=== PATIENT | female | born 1950 | race African-American/Black ===

== ENCOUNTER 2017-06-09 06:21 | Emergency (ER) | payer MEDICARE ==
[2017-06-09] MEDS ORDERED: NITROGLYCERIN 0.4 MG SL TAB SL ONE (07:33)
[2017-06-09] MEDS ORDERED: ASPIRIN 325 MG TABLET ONE (07:33)
[2017-06-09 07:41] LABS: BASOPHILS % (AUTO) 0.9 % (0.0-5.0); EOSINOPHILS % (AUTO) 5.5 % (0.0-8.0); HEMATOCRIT 40.3 % (36-48); LYMPHOCYTES % (AUTO) 33.4 % (21.0-51.0); MEAN CORPUSCULAR HEMOGLOBIN 26.9 pg (27.0-33.0); MEAN CORPUSCULAR HGB CONC 32.2 g/dL (32.0-36.0); MEAN CORPUSCULAR VOLUME 83.6 fL (79-99); MONOCYTES % (AUTO) 8.2 % (3.0-13.0); PLATELET COUNT (AUTO) 217 K/uL (130-400); RED BLOOD CELL COUNT(AUTO) 4.82 MIL/uL (4.00-5.50); RED CELL DISTRIBUTION WIDTH 13.7 % (11.0-15.5); WHITE BLOOD COUNT (AUTO) 6.4 K/uL (4.8-10.8)
[2017-06-09] MEDS ORDERED: ORPHENADRINE CITRATE 30 MG/ML ML ONE (08:12)
[2017-06-09 08:24] LABS: CREATININE 0.8 mg/dL (0.5-1.5); POTASSIUM 3.5 mmol/L (3.5-5.1)
[2017-06-09 08:34] LABS: ALBUMIN 3.4 g/dL (3.5-5.0); BILIRUBIN,TOTAL 0.5 mg/dL (0.2-1.0); CREATINE KINASE MB 0.7 ng/mL (0.5-3.6); TOTAL PROTEIN, SERUM 7.2 g/dL (6.0-8.3)
[2017-06-09] MEDS ORDERED: KETOROLAC TROMETHAMINE 30MG/ML ONE (09:59)
== END 2017-06-09 11:09 | disposition home or self-care (01) ==
LOC: EDH 06:21
DX: M54.6 Pain in thoracic spine (principal); R07.9 Chest pain, unspecified; I10 Essential (primary) hypertension; J45.909 Unspecified asthma, uncomplicated; Z88.0 Allergy status to penicillin; Z88.2 Allergy status to sulfonamides; Z98.890 Other specified postprocedural states
CPT/HCPCS: 36415; 71045; 80053; 82550; 82553; 84484 ×2; 85025; 93005 ×2; 96374; 96375; 99285; J1885; J2360

== ENCOUNTER 2017-08-22 10:27 | Emergency (ER) | payer MEDICARE ==
[2017-08-22] MEDS ORDERED: IBUPROFEN 600 MG TABLET ONE (11:05)
== END 2017-08-22 12:11 | disposition home or self-care (01) ==
LOC: EDH 10:27
DX: S83.92XA Sprain of unspecified site of left knee, initial encounter (principal); S93.402A Sprain of unspecified ligament of left ankle, initial encounter; J45.909 Unspecified asthma, uncomplicated; I10 Essential (primary) hypertension; Z90.710 Acquired absence of both cervix and uterus; Z88.0 Allergy status to penicillin; Z88.2 Allergy status to sulfonamides; X50.1XXA Overexertion from prolonged static or awkward postures, initial encounter; Y93.01 Activity, walking, marching and hiking; Y92.098 Other place in other non-institutional residence as the place of occurrence of the external cause; Y99.8 Other external cause status
CPT/HCPCS: 73562; 73610

== ENCOUNTER 2019-07-18 23:24 | Emergency (ER) | payer MEDICARE ==
[2019-07-18] MEDS ORDERED: IPRATROPIUM/ALBUTEROL SULFATE 3 ML SOLUTION IH ONE (23:58)
[2019-07-19] MEDS ORDERED: METHYLPREDNISOLONE SOD SUCC 125MG/2ML VIAL ONE (00:04)
[2019-07-19] MEDS ORDERED: SODIUM CHLORIDE 0.9% 1000ML 1,000 ML IV ONE (00:04)
[2019-07-19] MEDS ORDERED: KETOROLAC TROMETHAMINE 15MG/ML ONE (00:04)
[2019-07-19] MEDS ORDERED: ONDANSETRON HCL 4 MG/2 ML VIAL ONE (00:04)
[2019-07-19 00:28] LABS: BASOPHILS % (AUTO) 0.7 % (0.0-5.0); EOSINOPHILS % (AUTO) 10.7 % (0.0-8.0); HEMATOCRIT 40.8 % (36-48); LYMPHOCYTES % (AUTO) 20.7 % (21.0-51.0); MEAN CORPUSCULAR HEMOGLOBIN 27.3 pg (27.0-33.0); MEAN CORPUSCULAR HGB CONC 31.9 g/dL (32.0-36.0); MEAN CORPUSCULAR VOLUME 85.5 fL (79-99); MONOCYTES % (AUTO) 6.3 % (3.0-13.0); NEUTROPHILS % (AUTO) 61.3 % (40.0-77.0); PLATELET COUNT (AUTO) 251 K/uL (130-400); RED BLOOD CELL COUNT(AUTO) 4.77 MIL/uL (4.00-5.50); RED CELL DISTRIBUTION WIDTH 12.7 % (11.0-15.5); WHITE BLOOD COUNT (AUTO) 12.3 K/uL (4.8-10.8)
[2019-07-19] MEDS ORDERED: IPRATROPIUM/ALBUTEROL SULFATE 3 ML SOLUTION IH ONE (00:35)
[2019-07-19 00:36] LABS: CREATININE 0.8 mg/dL (0.5-1.5); POTASSIUM 3.5 mmol/L (3.5-5.1)
[2019-07-19 00:41] LABS: ALBUMIN 3.7 g/dL (3.5-5.0); BILIRUBIN,TOTAL 0.3 mg/dL (0.2-1.0); TOTAL PROTEIN, SERUM 7.7 g/dL (6.0-8.3)
[2019-07-19] MEDS ORDERED: DiphenhydrAMINE HCL 50 MG/ML VIAL ONE (01:36)
[2019-07-19] MEDS ORDERED: FAMOTIDINE/PF 20 MG/2 ML VIAL IV ONE (01:36)
== END 2019-07-19 02:23 | disposition home or self-care (01) ==
LOC: EDH 23:24
DX: J45.901 Unspecified asthma with (acute) exacerbation (principal); I10 Essential (primary) hypertension; Z90.49 Acquired absence of other specified parts of digestive tract; Z90.710 Acquired absence of both cervix and uterus; Z88.0 Allergy status to penicillin; Z88.2 Allergy status to sulfonamides; Z79.899 Other long term (current) drug therapy
CPT/HCPCS: 36415; 71045; 80053; 82550; 84484; 85025; 93005; 94640 ×2; 96374; 96375; 99285; J1200; J1885; J2405; J2930; J3490; J7030

== ENCOUNTER → 2022-04-01 | Outpatient (CLI) | payer MEDICARE, OTHER ==
[~2022-04-01] MED LIST: GADOTERATE MEGLUMINE 10 MMOL/20 ML VIAL IV ONE
== END | disposition home or self-care (01) ==
LOC: RAH 09:11
PROVIDERS: ATTEND Family Medicine
DX: M48.061 Spinal stenosis, lumbar region without neurogenic claudication (principal); M54.50 Low back pain, unspecified; M54.31 Sciatica, right side; M54.32 Sciatica, left side
CPT/HCPCS: 72158; A9575

== ENCOUNTER 2022-06-21 15:00 | Observation (INO) | payer OTHER ==
[~2022-06-21] VITALS: Ht 165.1 cm; Wt 69.8 kg
[2022-06-21 11:40] LABS: BASOPHILS % (AUTO) 0.5 % (0.0-5.0); EOSINOPHILS % (AUTO) 4.2 % (0.0-8.0); HEMATOCRIT 44.8 % (36-48); LYMPHOCYTES % (AUTO) 27.6 % (21.0-51.0); MEAN CORPUSCULAR HEMOGLOBIN 27.3 pg (27.0-33.0); MEAN CORPUSCULAR VOLUME 87.8 fL (79-99); MONOCYTES % (AUTO) 7.8 % (3.0-13.0); NEUTROPHILS % (AUTO) 59.5 % (40.0-77.0); PLATELET COUNT (AUTO) 273 K/uL (130-400); RED CELL DISTRIBUTION WIDTH 13.2 % (11.0-15.5); WHITE BLOOD COUNT (AUTO) 9.1 K/uL (4.8-10.8)
[2022-06-21 11:53] LABS: CREATININE 0.7 mg/dL (0.5-1.5); POTASSIUM 3.6 mmol/L (3.5-5.1)
[2022-06-22 08:49] VITALS: BP 149/90
[2022-06-22] MEDS ORDERED: ROSU10TA28 PO (09:07)
[2022-06-22] MEDS ORDERED: UBID100C10 PO (09:33)
[2022-06-22] MEDS ORDERED: FLUTICASONE NASAL (09:33)
[2022-06-22] MEDS ORDERED: FOLI0.8T3 PO (09:33)
[2022-06-22] MEDS ORDERED: IBUP-2070 PO (09:33)
[2022-06-22] MEDS ORDERED: [UNRECOGNIZED DRUG - OTHER] PO (09:33)
[2022-06-22] MEDS ORDERED: AMLO-258 PO (09:33)
[2022-06-22] MEDS ORDERED: [UNRECOGNIZED DRUG - OTHER] PO (09:33)
[2022-06-22] MEDS ORDERED: BREO ELLIPTA IH (09:33)
[2022-06-22] MEDS ORDERED: MONT-39 PO (09:33)
[2022-06-23] VITALS (27 sets, daily range): BP systolic 84–136; BP diastolic 57–77
[2022-06-23] MEDS: CLINDAMYCIN IVPB 900MG/50ML 50 ML IV SCH (05:00)
[2022-06-23] MEDS ORDERED: THROMBIN-JMI 20000 UNIT KIT TP ONE ×2 (05:08→07:43)
[2022-06-23] MEDS ORDERED: VANCOMYCIN 1G VIAL ONE (05:10)
[2022-06-23] MEDS ORDERED: MORPHINE PF 100MG/10ML AMP IV ONE ×2 (05:11→07:46)
[2022-06-23] MEDS ORDERED: BUPIVACAINE/EPI/PF 0.25% 10ML VIAL IJ ONE ×4 (05:11→11:38)
[2022-06-23] MEDS ORDERED: GENTAMICIN SULFATE 80 MG/2 ML VIAL ONE ×2 (05:27→08:13)
[2022-06-23] MEDS ORDERED: LACTATED RINGERS 1000ML 1,000 ML IV ONE (06:11)
[2022-06-23] MEDS ORDERED: PROPOFOL 10 MG/ML 20ML VIAL IV ONE (06:52)
[2022-06-23] MEDS ORDERED: LIDOCAINE PF 100MG/5ML (2%) SYRINGE 5ML ONE (06:52)
[2022-06-23] MEDS ORDERED: NEOSTIGMINE 5MG/5ML SYR IV ONE (06:52)
[2022-06-23] MEDS ORDERED: DEXAMETHASONE SOD PHOSPHATE 10MG/ML 1ML VIAL ONE ×2 (06:52→07:46)
[2022-06-23] MEDS ORDERED: GLYCOPYRROLATE 1 MG/5 ML SYRINGE ONE (06:52)
[2022-06-23] MEDS ORDERED: SUCCINYLCHOLINE CHLORIDE 20 MG/ML 10 ML VIAL ONE (06:52)
[2022-06-23] MEDS ORDERED: MIDAZOLAM HCL 1 MG/ML 2ML VIAL ONE (06:52)
[2022-06-23] MEDS ORDERED: ONDANSETRON 4MG INJ ONE ×2 (06:53→07:46)
[2022-06-23] MEDS ORDERED: FENTANYL CITRATE PF 50 MCG/1 ML 2ML VIAL ONE ×4 (06:53→11:13)
[2022-06-23] MEDS ORDERED: ROCURONIUM 10MG/1ML SYR 10 MG/ML ML ONE (06:53)
[2022-06-23] MEDS ORDERED: BUPIVACAINE/EPI/PF 0.25% 10ML VIAL IJ SCH (09:30)
[2022-06-23] MEDS ORDERED: CLINDAMYCIN IVPB 900MG/50ML 50 ML IV SCH (12:00)
[2022-06-23] MEDS ORDERED: PROMETHAZINE HCL 25 MG/ML 1ML AMPULE IM PRN (12:00)
[2022-06-23] MEDS ORDERED: 0.9%NACL 10ML VIAL IVP PRN (12:00)
[2022-06-23] MEDS: LACTATED RINGERS 1000ML 1,000 ML IV SCH (12:00)
[2022-06-23] MEDS ORDERED: IBUPROFEN 200 MG TAB PO PRN (12:00)
[2022-06-23] MEDS ORDERED: HYDROMORPHONE 1 MG INJ ONE (12:41)
[2022-06-23] MEDS: FLUTICASONE PROPIONATE 50MCG/SPRAY 16 GM BOTTLE NS SCH (12:45)
[2022-06-23] MEDS: DEXAMETHASONE SOD PHOSPHATE 4 MG/ML 1ML VIAL IVP SCH ×2 (16:42→18:00)
[2022-06-23] MEDS ORDERED: FOLIC ACID 1 MG TABLET PO SCH (21:00)
[2022-06-23] MEDS ORDERED: MONTELUKAST SODIUM 10 MG TAB PO SCH (21:00)
[2022-06-23] MEDS: HYDROCODONE/ACETAMINOPHEN 5/325 MG TAB PO PRN (22:20)
[2022-06-24] MEDS: DEXAMETHASONE SOD PHOSPHATE 4 MG/ML 1ML VIAL IVP SCH ×2 (00:10→06:17)
[2022-06-24] MEDS: MORPHINE 2 MG SYG IVP PRN ×2 (00:10→09:46)
[2022-06-24 00:18] VITALS: BP 103/62
[2022-06-24] MEDS: LACTATED RINGERS 1000ML 1,000 ML IV SCH (00:27)
[2022-06-24] MEDS: CLINDAMYCIN IVPB 900MG/50ML 50 ML IV SCH (00:27)
[2022-06-24 04:22] VITALS: BP 109/57
[2022-06-24] MEDS: HYDROCODONE/ACETAMINOPHEN 5/325 MG TAB PO PRN (06:51)
[2022-06-24 07:05] VITALS: BP 87/62
[2022-06-24] MEDS: FLUTICASONE PROPIONATE 50MCG/SPRAY 16 GM BOTTLE NS SCH (08:37)
[2022-06-24] MEDS ORDERED: AMLODIPINE 5 MG TAB PO SCH (09:00)
[2022-06-24] MEDS ORDERED: ***HM***(Ubidecarenone (Coq-10) 100 MG) PO SCH (09:00)
[2022-06-24] MEDS ORDERED: ATORVASTATIN 10 MG TABLET PO SCH (09:00)
[2022-06-24] MEDS ORDERED: [UNRECOGNIZED DRUG - OTHER] PO SCH (09:00)
[2022-06-24] MEDS ORDERED: FLUTICASONE/VILANTEROL 1 EACH AER.POW.BA IH SCH (09:00)
[2022-06-24] MEDS ORDERED: MULTIVITS,STRESS FORMULA/ZINC 1 TABLET PO SCH (09:00)
== END 2022-06-24 12:11 | disposition home or self-care (01) ==
LOC: DAHIP 06-23 05:55 → 4AH 06-23 14:02 → EDSTATUS 06-23 15:00
PROVIDERS: ADMIT Neurological Surgery; ATTEND Neurological Surgery
DX: M48.061 Spinal stenosis, lumbar region without neurogenic claudication (principal); Z20.822 Contact with and (suspected) exposure to COVID-19; J45.909 Unspecified asthma, uncomplicated; I10 Essential (primary) hypertension; E78.5 Hyperlipidemia, unspecified; Z90.710 Acquired absence of both cervix and uterus; Z79.899 Other long term (current) drug therapy; Z88.0 Allergy status to penicillin
CPT/HCPCS: 80048; 85025; 87426; 36415; 71045; 22612; 63047; 63048 ×3; 22840; 96372; 96365; 96375 ×2; 72110; 96376; A6260; J1100 ×5; G0378 ×23; G0379; A4663; J7120 ×3; A4344; A4649 ×6; J3010 ×4; J1170; J3490 ×8; J2710; J0330; J2001; J1580 ×2; J2250; J2704; J2274 ×2; J2405 ×2; A5113; A6219; C1776; A4215; A4223; A4222; A4221; A4600; A4510; J3370

== ENCOUNTER → 2022-07-19 | Outpatient (CLI) | payer OTHER ==
[~2022-07-19] MED LIST changes: +AMLO-258 PO; +BREO ELLIPTA IH; +FLUTICASONE NASAL; +FOLI0.8T3 PO; -GADOTERATE MEGLUMINE 10 MMOL/20 ML VIAL IV ONE; +IBUP-2070 PO; +MONT-39 PO; +ROSU10TA28 PO; +UBID100C10 PO; +[UNRECOGNIZED DRUG - OTHER] PO; +[UNRECOGNIZED DRUG - OTHER] PO
== END | disposition home or self-care (01) ==
LOC: RAH 10:00
PROVIDERS: ATTEND Neurological Surgery
DX: M47.816 Spondylosis without myelopathy or radiculopathy, lumbar region (principal); M43.17 Spondylolisthesis, lumbosacral region; M48.07 Spinal stenosis, lumbosacral region; Z98.1 Arthrodesis status
CPT/HCPCS: 72100

== ENCOUNTER 2024-07-09 12:22 | Emergency (ER) | payer OTHER ==
[~2024-07-09] VITALS: Ht 165.1 cm; Wt 65.3 kg
[~2024-07-09 12:22] MED LIST changes: -ROSU10TA28 PO; +ROSU10TA72 PO
[2024-07-09 14:33] VITALS: BP 140/86; PULSE 95; RESP 20; TEMP 98; O2SAT 96
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
--- NOTE | 2024-07-09 16:04 | HMCIMG ---
LUMBAR SPINE 2-3VWS HISTORY: Back pain COMPARISON: None FINDINGS: 3 images of lumbar spine were obtained. Postop changes are seen with fixation devices at L4 and L5 level with laminectomy changes. Grade 1 anterolisthesis is seen at the L4-5 and L3-4 levels. Vascular calcifications are seen. There is straightening of normal lordotic curvature which may be related to muscle spasm or positioning. No loss of vertebral height is seen. No fracture or dislocation is seen. Degenerative changes are seen. IMPRESSION: 1. No fracture is seen. DJD with postop changes.
== END 2024-07-09 16:41 | disposition home or self-care (01) ==
LOC: EDH 12:22
DX: M54.50 Low back pain, unspecified (principal); I10 Essential (primary) hypertension; J45.909 Unspecified asthma, uncomplicated; Z79.51 Long term (current) use of inhaled steroids; Z88.0 Allergy status to penicillin; Z88.2 Allergy status to sulfonamides; Z90.710 Acquired absence of both cervix and uterus; V89.2XXA Person injured in unspecified motor-vehicle accident, traffic, initial encounter; Y93.89 Activity, other specified; Y92.488 Other paved roadways as the place of occurrence of the external cause; Y99.8 Other external cause status
CPT/HCPCS: 72100; 99283

== ENCOUNTER 2024-07-29 20:20 | Observation (INO) | payer OTHER ==
[~2024-07-29] VITALS: Ht 165.1 cm; Wt 64.7 kg
--- NOTE | 2024-07-29 20:29 | NUR ---
COVID, FLU AND STREP SWABS COLLECTED AND SENT
[2024-07-29 20:54] LABS: RAPID GROUP A STREP negative (NEGATIVE)
[2024-07-29 20:58] LABS: SARS-CoV-2, RNA, NAAT NEGATIVE SARS CoV-2 (NEGATIVE)
--- NOTE | 2024-07-29 21:16 | HMCIMG ---
ULTRASOUND ABDOMEN LIMITED INDICATION: Right upper abdominal pain COMPARISON: None FINDINGS: The liver is normal in size and slightly increased in echogenicity; no focal lesion demonstrated. Main portal vein is patent, and normal direction of vascular flow demonstrated. The common bile duct diameter measures 4.0 mm. No evidence for calculi, sludge or pericholecystic fluid. No sonographic Patel's sign elicited by the ultrasound larry operator. Wall thickness measures 3.0 mm. Pancreas is obscured by overlying bowel gas. The right kidney measures 8.7 x 3.6 x 4.0 cm,and is normal in echogenicity, without evidence for hydronephrosis.No shadowing stones demonstrated. No free fluid demonstrated. IMPRESSION: Limitations as reported. Findings suggesting mild hepatic steatosis.
[2024-07-29] MEDS: 0.9%NACL 1000ML 1,000 ML IV ONE ×2 (21:17→23:37)
[2024-07-29] MEDS: morPHINE 4 MG SYG IVP ONE (21:17)
[2024-07-29] MEDS: PANTOPrazole 40 MG/VIAL IVP ONE (21:17)
[2024-07-29] MEDS: ondanSETRON 4MG INJ IVP ONE (21:17)
[2024-07-29] MEDS: acetaMINOPHEN 500 MG TABLET PO ONE (21:18)
[2024-07-29 21:24] LABS: BASOPHILS # (AUTO) 0.02 K/uL (0.00-0.20); BASOPHILS % (AUTO) 0.3 % (0.0-5.0); EOSINOPHILS # (AUTO) 0.16 K/uL (0.00-0.70); EOSINOPHILS % (AUTO) 2.8 % (0.0-8.0); HEMATOCRIT 43.9 % (36-48); IMMATURE GRANULOCYTE ABSOLUTE 0.02 K/uL (0-1); LYMPHOCYTES # (AUTO) 1.1 K/uL (1.0-4.8); LYMPHOCYTES % (AUTO) 19.5 % (21.0-51.0); MEAN CORPUSCULAR HEMOGLOBIN 27.1 pg (27.0-33.0); MEAN CORPUSCULAR HGB CONC 31.7 g/dL (32.0-36.0); MEAN CORPUSCULAR VOLUME 85.7 fL (79-99); MONOCYTES # (AUTO) 0.5 K/uL (0.1-1.0); MONOCYTES % (AUTO) 8.2 % (3.0-13.0); NEUTROPHILS % (AUTO) 68.9 % (40.0-77.0); PLATELET COUNT (AUTO) 219 K/uL (130-400); RED BLOOD CELL COUNT(AUTO) 5.12 MIL/uL (4.00-5.50); RED CELL DISTRIBUTION WIDTH 13.2 % (11.0-15.5); WHITE BLOOD COUNT (AUTO) 5.8 K/uL (4.8-10.8)
[2024-07-29 21:30] LABS: INFLUENZA TYPE A Negative For Type A (NEGATIVE)
[2024-07-29 21:34] LABS: INFLUENZA TYPE B Positive For Type B (NEGATIVE)
--- NOTE | 2024-07-29 21:36 | HMCIMG ---
PORTABLE CHEST RADIOGRAPH INDICATION: cp COMPARISON: 06/21/2022 FINDINGS: Heart size is normal. The pulmonary vascularity and arjun appear normal. No abnormal pulmonary parenchymal opacity or consolidation identified. No significant pleural effusion noted. No pneumothorax detected. IMPRESSION: No radiographic evidence for any acute cardiopulmonary process.
[2024-07-29 21:40] LABS: APPEARANCE,URINE CLOUDY (CLEAR); BILIRUBIN,URINE NEGATIVE (NEGATIVE); COLOR,URINE YELLOW (YELLOW); GLUCOSE, URINE (UA) NEGATIVE (NEGATIVE); KETONES,URINE NEGATIVE (NEGATIVE); LEUKOCYTE ESTERASE ,URINE 500 Leu/uL (NEGATIVE); NITRATE,URINE NEGATIVE (NEGATIVE); OCCULT BLOOD,URINE NEGATIVE (NEGATIVE); PROTEIN,URINE 30 mg/dL (NEGATIVE); UROBILINOGEN,URINE 0.2 mg/dL (0.2-1.0)
[2024-07-29 21:41] LABS: ADD UA MICROSCOPIC YES
[2024-07-29 21:44] LABS: MUCUS,URINE RARE LPF (None Seen); SQUAMOUS EPITHELIAL CELL,UR FEW /HPF (0-2); TRANSITIONAL EPI CELLS,URINE RARE /HPF (None Seen); WBC,URINE 26-50 /HPF (0-1)
[2024-07-29 21:46] LABS: BILIRUBIN,DIRECT 0.1 mg/dL (0.0-0.3); BILIRUBIN,TOTAL 0.5 mg/dL (0.2-1.0); CREATININE 0.8 mg/dL (0.5-1.0)
[2024-07-29 21:47] LABS: TOTAL PROTEIN, SERUM 7.7 g/dL (6.0-8.3)
[2024-07-29 21:48] LABS: ALBUMIN 3.6 g/dL (3.5-5.0)
[2024-07-29 21:49] LABS: POTASSIUM 2.9 mmol/L (3.5-5.1)
[2024-07-29] MEDS: cefTRIAXone 1G VIAL IVPB ONE (22:17)
[2024-07-29] MEDS: PoTASSium BIcarbonate/CIT AC 25 MEQ TABLET.EFF PO ONE (22:18)
[2024-07-29] MEDS: OSELTAMIVIR PHOSPHATE 75 MG CAP PO ONE (22:18)
[2024-07-29] MEDS: PoTASSium chloRIDE 10MEQ/100ML 100 ML IV ONE (22:18)
[2024-07-29] MEDS ORDERED: PoTASSium chloRIDE 20MEQ/100ML 100 ML IV PRN (23:00)
[2024-07-29] MEDS ORDERED: acetaMINOPHEN 325 MG TAB PO PRN (23:00)
[2024-07-29] MEDS ORDERED: PoTASSium chl 10% ELIXIR 20MEQ 20 MEQ/15 ML UDCUP PO PRN (23:00)
[2024-07-29] MEDS ORDERED: PoTASSium chloRIDE 20MEQ ER 20 MEQ ERTAB PO PRN (23:00)
[2024-07-30] MEDS: cefTRIAXone 1G VIAL IVPB SCH
[2024-07-30 00:15] VITALS: BP 143/75; PULSE 66; RESP 17; TEMP 97.9; O2SAT 98
[2024-07-30] MEDS: 0.9%NACL 1000ML 1,000 ML IV SCH (00:55)
--- NOTE | 2024-07-30 01:29 | ERN ---
ED Note History of Present Illness Stated Complaint: UTI, FLU POSITIVE Chief Complaint: Multiple Complaints Time Seen by MD: 20:32 Time Seen by Midlevel: 20:32 Dictation: The patient is a 73-year-old female with a history of hypertension, back surgery who presents to the emergency department with complaints of nonbloody vomiting, nonbloody diarrhea, fevers, right upper abdominal pain onset yesterday. Patient reports more than 10 episodes of nonbloody diarrhea today. Allergies: Coded Allergies: Penicillins (Verified Allergy, 05/15/13) Sulfa (Sulfonamide Antibiotics) (Verified Allergy, 05/15/13) Home Meds Reported Medications [Brillant Brain] No Conflict Check, 1 TAB PO AM 06/22/22 Ubidecarenone (Coq-10) 100 Mg Capsule, 100 MG PO AM, CAP 06/22/22 [Womens Silver] No Conflict Check, 1 TAB PO AM 06/22/22 Folic Acid (Folic Acid) 0.8 Mg Tablet, 0.8 MG PO HS, TAB 06/22/22 [Fluticasone] No Conflict Check, 1 SPRAY NASAL AM 06/22/22 Montelukast Sodium (Montelukast Sodium) 10 Mg Tablet, 10 MG PO HS, TAB 06/22/22 Ibuprofen (Ibuprofen) 600 Mg Tablet, 600 MG PO TID PRN for PAIN, TAB 06/22/22 [Breo Ellipta] No Conflict Check, 1 PUFF IH DAILY 06/22/22 Amlodipine Besylate (Amlodipine Besylate) 10 Mg Tablet, 10 MG PO AM for 30 Days, #30 TAB 0 Refills 06/22/22 Rosuvastatin Calcium (Rosuvastatin Calcium) 10 Mg Tablet, 10 MG PO AM, TAB 06/22/22 Past Medical History Past Medical History: Asthma, Hypertension Surgical History: Hysterectomy, Tonsillectomy, Other Surgical History Other: BACK, LEFT THUMB RN Note Reviewed/Agreed w/PFSH: Yes Review of System Dictation Constitutional: Negative for chills, and weight loss positive for fever Eyes: Negative for injury, pain,redness, and discharge ENT: Negative for injury,pain or swelling Cardiovascular: Negative for chest pain, palpitations, and edema Respiratory: Negative for shortness of breath, cough, and wheezing, Abdomen/GI: Negative for and constipation positive for abdominal pain, nausea, vomiting, diarrhea, Back: Negative for injury and pain : Negative for injury, bleeding and discharge MS/Extremity: Negative for injury and deformity Skin: Negative for rash, and discoloration Neuro: Negative for headache, weakness, numbness, tingling, and seizure Psych: Negative for suicide ideation, homicidal ideation, and hallucinations Initial Vital Sign VS Vital Signs Date Time Temp Pulse Resp B/P (MAP) Pulse Ox O2 Delivery O2 Flow Rate FiO2 07/29/24 20:21 100.2 120 20 126/94 98 Room Air 07/29/24 20:30 0 21 Physical Exam Dictation Vital Signs reviewed General Appearance: Alert, oriented x 3, no acute distress, well developed, nour ished. Head and Face: non-traumatic. Eyes: PERRL, pink conjunctivas, eyelid no trauma, anterior chamber with arcus senilis. Ears: Pinnas intact and no signs of trauma or erythema ear canals clear and no discharge TM no erythema Nose: No discharge, no bleeding. Oropharynx: Mouth normal, tongue pink. pharynx clear,no erythema, tonsils no exudates, no abscesses noted, mucous memb jessica moist Neck: Supple, non-tender, no thyromegaly, no masses, no JVD, no bruits Breast:Deferred Chest:No tenderness, no crepitus, no paradoxical movement, no retractions Lungs:Clear, well-ventilated, symmetric, no rales, no wheezing, no rhonchi, no s tridor, good breath sounds bilaterally Heart: Regular rate, regular rhythm, no murmur, no gallops Vascular: no peripheral edema, Abdomen: Soft, positive bowel sounds, nondistended, no guarding, Right upper abdominal tenderness, no rebound, no masses no hepatomegaly, no splenomegaly, no Patel's sign, no hernias. Rectal: Deferred Genital: Deferred Neurological: Normal speech, motor function intact, sensory function intact Musculoskeletal: Neck nontender, full range of motion, back nontender, full range of motion, Extremities: nontender, full range of motion Skin: Color pink, dry, no turgor, no rash, no lacerations, no abrasions, no contusions. Lymphatic: Deferred Results (Laboratory/Radiology) Laboratory/Radiology Laboratory Tests Test 07/29/24 20:10 07/29/24 20:20 07/29/24 21:20 White Blood Count 5.8 K/uL (4.8-10.8) Red Blood Count 5.12 MIL/uL (4.00-5.50) Hemoglobin 13.9 g/dL (12.0-16.0) Hematocrit 43.9 % (36-48) Mean Corpuscular Volume 85.7 fL (79-99) Mean Corpuscular Hemoglobin 27.1 pg (27.0-33.0) Mean Corpuscular Hemoglobin Concent 31.7 g/dL (32.0-36.0) L Red Cell Distribution Width 13.2 % (11.0-15.5) Platelet Count 219 K/uL (130-400) Mean Platelet Volume 11.2 fL (7.5-10.5) H Immature Granulocyte % (Auto) 0.3 % (0-1) Neutrophils (%) (Auto) 68.9 % (40.0-77.0) Lymphocytes (%) (Auto) 19.5 % (21.0-51.0) L Monocytes (%) (Auto) 8.2 % (3.0-13.0) Eosinophils (%) (Auto) 2.8 % (0.0-8.0) Basophils (%) (Auto) 0.3 % (0.0-5.0) Neutrophils # (Auto) 4.0 K/uL (1.8-7.7) Lymphocytes # (Auto) 1.1 K/uL (1.0-4.8) Monocytes # (Auto) 0.5 K/uL (0.1-1.0) Eosinophils # (Auto) 0.16 K/uL (0.00-0.70) Basophils # (Auto) 0.02 K/uL (0.00-0.20) Absolute Immature Granulocyte (auto 0.02 K/uL (0-1) Nucleated Red Blood Cells 0.0 % (0.0-0.19) Sodium Level 135 mmol/L (136-145) L Potassium Level 2.9 mmol/L (3.5-5.1) *L Chloride Level 98 mmol/L (101-111) L Carbon Dioxide Level 29 mmol/L (21-32) Blood Urea Nitrogen 13 mg/dL (7-18) Creatinine 0.8 mg/dL (0.5-1.0) Glomerular Filtration Rate Calc 78 mL/min (>90) Random Glucose 99 mg/dL (70-105) Total Calcium 9.2 mg/dL (8.5-10.1) Magnesium Level 2.00 mg/dL (1.80-2.40) Total Bilirubin 0.5 mg/dL (0.2-1.0) Direct Bilirubin 0.1 mg/dL (0.0-0.3) Aspartate Amino Transf (AST/SGOT) 30 U/L (10-37) Alanine Aminotransferase (ALT/SGPT) 33 U/L (12-78) Alkaline Phosphatase 99 U/L (50-136) Troponin I High Sensitivity 7 ng/L (4-50) Total Protein 7.7 g/dL (6.0-8.3) Albumin 3.6 g/dL (3.5-5.0) Lipase 15 U/L (16-77) L Influenza Type A Antigen Negative For Type A Influenza Type B Antigen Positive For Type B SARS-CoV-2, RNA, NAAT NEGATIVE SARS CoV-2 Group A Streptococcus Rapid negative (NEGATIVE) Urine Color YELLOW (YELLOW) Urine Appearance CLOUDY (CLEAR) H Urine pH 6.0 (5.0-8.0) Urine Specific [place] 1.019 (1.001-1.031) Urine Protein 30 mg/dL (NEGATIVE) H Urine Glucose (UA) NEGATIVE mg/dL (NEGATIVE) Urine Ketones NEGATIVE mg/dL (NEGATIVE) Urine Occult Blood NEGATIVE (NEGATIVE) Urine Nitrate NEGATIVE (NEGATIVE) Urine Bilirubin NEGATIVE mg/dL (NEGATIVE) Urine Urobilinogen 0.2 mg/dL (0.2-1.0) Urine Leukocyte Esterase 500 Denisse/uL (NEGATIVE) H Urine RBC 2-5 /HPF (0-1) H Urine WBC 26-50 /HPF (0-1) H Urine Squamous Epithelial Cells FEW /HPF (0-2) Urine Transitional Epithelial Cells RARE /HPF (None Seen) Urine Bacteria None /HPF (None Seen) REASON: Adominal Pain ORDERING PHYSICIAN: ANA ROSA BABCOCK PROCEDURE: ABDRUQLTD - US ABDOMINAL RUQ\LTD ULTRASOUND ABDOMEN LIMITED INDICATION: Right upper abdominal pain COMPARISON: None FINDINGS: The liver is normal in size and slightly increased in echogenicity; no focal lesion demonstrated. Main portal vein is patent, and normal direction of vascular flow demonstrated. The common bile duct diameter measures 4.0 mm. No evidence for calculi, sludge or pericholecystic fluid. No sonographic Patel's sign elicited by the ultrasound turning machine operator helper. Wall thickness measures 3.0 mm. Pancreas is obscured by overlying bowel gas. The right kidney measures 8.7 x 3.6 x 4.0 cm,and is normal in echogenicity, without evidence for hydronephrosis.No shadowing stones demonstrated. No free fluid demonstrated. IMPRESSION: Limitations as reported. Findings suggesting mild hepatic steatosis. REASON: cp ORDERING PHYSICIAN: ANA ROSA BABCOCK POULTRY PATHOLOGIST PROCEDURE: CXR1VW - CHEST 1VW PORTABLE CHEST RADIOGRAPH INDICATION: cp COMPARISON: 06/21/2022 FINDINGS: Heart size is normal. The pulmonary vascularity and arjun appear normal. No abnormal pulmonary parenchymal opacity or consolidation identified. No significant pleural effusion noted. No pneumothorax detected. IMPRESSION: No radiographic evidence for any acute cardiopulmonary process. Labs Reviewed?: Yes EKG: (+) rhythm (Sinus tachycardia) EKG Comment: Date:07/29/2024 Time:2111 Ventricular rate:117 CO interval:138 QRS duration:82 QT/QTc:314 EKG interpretation: Sinus tachycardia Reviewed by ED Attending no STEMI ED Course ED Course Orders Procedure Category Date Status Time Covid Rna Naat LAB 07/29/24 Complete 20:28 Influenza Type A & B, LAB 07/29/24 Complete Rapid 20:28 Rapid (Group A Strep) LAB 07/29/24 Complete 20:28 Cbc With Differential LAB 07/29/24 Complete 20:46 Chest 1vw RAD 07/29/24 Resulted 20:46 12 Lead Ekg Tracing- EKG 07/29/24 Logged Technical 20:46 0.9%Nacl 1000ml (Ns PHA 07/29/24 In Process 1000ml) 21:00 Magnesium LAB 07/29/24 Complete 20:46 Troponin I High LAB 07/29/24 Complete Sensitivity 20:46 Urinalysis Profile LAB 07/29/24 Complete 20:46 Basic Metabolic Panel LAB 07/29/24 Complete 20:46 Us Abdominal Ruq\Ltd US 07/29/24 Resulted 20:46 Morphine 4mg Syg PHA 07/29/24 Complete (Morphine 4mg Syg) 21:00 Ondansetron 4mg Inj PHA 07/29/24 Complete (Zofran 4mg Inj) 21:00 Pantoprazole 40mg Inj PHA 07/29/24 Complete (Protonix 40mg Inj 21:00 Lipase LAB 07/29/24 Complete 20:46 Acetaminophen 500mg PHA 07/29/24 Complete Tab (Tylenol 500mg T 21:00 Hepatic Function Panel LAB 07/29/24 Complete 20:46 Culture Urine KAIDEN 07/29/24 In Process 21:42 Oseltamivir Phosphate PHA 07/29/24 Complete (Tamiflu) 22:00 Potassium Bicarb/Cit PHA 07/29/24 Complete Ac 25meq (K-Lyte Ta 22:00 Potassium Chloride PHA 25 Complete 10meq/100ml (Potassiu 22:00 Ceftriaxone 1g Vial PHA 07/29/24 Complete (Rocephine 1g Inj) 22:00 Edm Admit Bridge Order ADM 07/29/24 Transmitted 22:23 Admit Orders ADM 07/29/24 Transmitted 22:41 Admit Orders ADM 07/29/24 Transmitted 22:46 Cbc With Differential LAB 07/30/24 In Process 06:00 Comprehensive LAB 07/30/24 In Process Metabolic Panel 06:00 Magnesium LAB 07/30/24 In Process 06:00 Clear Liquid DIET 07/30/24 Transmitted Breakfast 0.9%Nacl 1000ml (Ns PHA 07/29/24 In Process 1000ml) 23:00 0.9%Nacl 1000ml (Ns PHA 07/29/24 Complete 1000ml) 23:00 Acetaminophen 325 Tab PHA 07/29/24 In Process (Tylenol 325mg Tab 23:00 Oseltamivir Phosphate PHA 07/30/24 In Process (Tamiflu) 09:00 Initiate Po TOMMY 07/29/24 In Process Hypokalemia Protoc 23:00 Potassium Chloride PHA 07/29/24 In Process 20meq/100ml ([place] 23:00 Potassium Chl 10% PHA 07/29/24 In Process Elixir 20meq (Kcl 10% 23:00 Potassium Chloride PHA 07/29/24 In Process 20meq Er (K-Dur/Klor- 23:00 Notify Physician If CPOE 25 Transmitted There Is 23:00 Notify Md On The Next CPOE 25 Transmitted 23:00 Notify Md On The CPOE 25 Transmitted Next(Cont.) 23:00 *Nursing CPOE 07/29/24 Transmitted Communication: 23:00 Ceftriaxone 1g Vial PHA 07/30/24 In Process (Rocephine 1g Inj) 23:00 Vital Signs Date Time Temp Pulse Resp B/P (MAP) Pulse Ox O2 Delivery O2 Flow Rate FiO2 07/30/24 00:15 98 Room Air* 0 07/29/24 23:57 77 19 138/76 98 Room Air* 0 07/29/24 21:50 99.1 111 20 124/88 98 Room Air* 0 07/29/24 20:30 100.2 120 20 126/94 100 Room Air* 0 07/29/24 20:21 100.2 120 20 126/94 98 Room Air Medical Decision Making MDM MDM: The patient is a 73-year-old female with a history of hypertension, back surgery who presents to the emergency department with complaints of nonbloody vomiting, nonbloody diarrhea, fevers, right upper abdominal pain onset yesterday. Patient reports more than 10 episodes of nonbloody diarrhea today. CBC showed no leukocytosis, no anemia, chemistry showed hypokalemia, hypochloremia, GFR of 78, negative lipase, negative troponin, urinalysis positive for UTI. X-ray showed no acute pathology, ultrasound mild hepatic steatosis. Patient's serology positive for influenza B. patient continues slightly tachycardic and will be admitted for further management. Differential diagnosis: Dehydration, gastroenteritis, cholelithiasis, upper respiratory infection Comorbidities: Hypertension Tests considered and not ordered secondary to shared decision making include: none Previous outside records reviewed: none Risk of complication and/or morbidity or mortality of patient management: The patient meets criteria for admission. Need for emergency major/minor surgery: No There are no social concerns with this patient. I independently interpreted the tests I ordered (labs, urinalysis, etc.). I discussed the case with the hospitalist for admission. Dr. Hunter who accepts admission I discussed the case with the following specialists: none. Historian: pateint. I independently interpreted imaging studies and EKGs that I ordered (US, CT, XR, EKG, etc.). External chart review: none. Medical management and examination interpretation discussions were had by me with other qualified healthcare professionals as indicated for the patient's care. DX & DISP Disposition: Inpatient Decision to Admit Date: Jul 30, 2024 Decision to Admit Time: 22:41 Departure Impression: Primary Impression: Influenza B Additional Impressions: UTI (urinary tract infection), Dehydration, Hypokalemia, Nausea and vomiting, Abdominal pain Condition: Stable Referrals: TYRA ROME MD (PCP) I have reviewed the case, and I agree with, Diagnosis and Plan ANA ROSA BABCOCK [facility] Jul 30, 2024 01:29
[2024-07-30 04:00] VITALS: BP 110/56; PULSE 62; RESP 17; TEMP 97.9
[2024-07-30 07:13] LABS: BASOPHILS # (AUTO) 0.01 K/uL (0.00-0.20); BASOPHILS % (AUTO) 0.2 % (0.0-5.0); EOSINOPHILS # (AUTO) 0.29 K/uL (0.00-0.70); EOSINOPHILS % (AUTO) 6.8 % (0.0-8.0); IMMATURE GRANULOCYTE ABSOLUTE 0.01 K/uL (0-1); LYMPHOCYTES # (AUTO) 1.1 K/uL (1.0-4.8); LYMPHOCYTES % (AUTO) 26.1 % (21.0-51.0); MEAN CORPUSCULAR HEMOGLOBIN 27.2 pg (27.0-33.0); MEAN CORPUSCULAR HGB CONC 31.4 g/dL (32.0-36.0); MEAN CORPUSCULAR VOLUME 86.9 fL (79-99); MONOCYTES # (AUTO) 0.5 K/uL (0.1-1.0); MONOCYTES % (AUTO) 10.7 % (3.0-13.0); NEUTROPHILS # (AUTO) 2.4 K/uL (1.8-7.7); PLATELET COUNT (AUTO) 175 K/uL (130-400); RED BLOOD CELL COUNT(AUTO) 4.26 MIL/uL (4.00-5.50); RED CELL DISTRIBUTION WIDTH 13.4 % (11.0-15.5); WHITE BLOOD COUNT (AUTO) 4.3 K/uL (4.8-10.8)
[2024-07-30 07:28] LABS: ALBUMIN 2.6 g/dL (3.5-5.0); BILIRUBIN,TOTAL 0.3 mg/dL (0.2-1.0); CREATININE 0.6 mg/dL (0.5-1.0); MAGNESIUM 1.8 mg/dL (1.80-2.40); POTASSIUM 3.3 mmol/L (3.5-5.1); TOTAL PROTEIN, SERUM 5.7 g/dL (6.0-8.3)
[2024-07-30 08:00] VITALS: BP 117/66; PULSE 65; RESP 18; TEMP 98
--- NOTE | 2024-07-30 08:19 | EKG ---
[facility] Test Date: 2024-07-29 Test Time: 21:12:36 Pat Name: PALAK EAST Department: [facility] Room: 413 1 Gender: F Rehab/Pre Vocational Counselor: [id number] : 1950 Requested By: ANA ROSA BABCOCK Order Number: [id number] Reading MD: Omar Wilson Measurements Intervals [place] Rate: 117 P: 71 UT: 138 QRS: -42 QRSD: 82 T: 2 QT: 314 QTc: 439 Interpretive Statements Sinus tachycardia LAE, consider biatrial enlargement Left axis deviation Anterior infarct, old Compared to ECG 07/18/2019 23:55:59 Left-axis deviation now present Myocardial infarct finding still present Electronically Signed On 07-30-2024 18:55:40 HEALTH CARE MARKETING SPECIALIST by Omar Wilson Please click the below link to view image of tracing.
[2024-07-30] MEDS: OSELTAMIVIR PHOSPHATE 75 MG CAP PO SCH (08:35)
[2024-07-30] MEDS: PoTASSium chloRIDE 20MEQ ER 20 MEQ ERTAB PO ONE (08:36)
[2024-07-30] MEDS ORDERED: furoSEMIDE 40 MG TABLET PO SCH (11:30)
[2024-07-30 12:00] VITALS: BP 108/69; PULSE 69; RESP 18; TEMP 98
--- NOTE | 2024-07-30 15:40 | DS ---
ADMITTING DIAGNOSES: Flu B positive, urinary tract infection, abdominal pain, nausea, vomiting, and hypertension. DISCHARGE DIAGNOSES: Flu B positive. Urinary tract infection. Abdominal pain, stable. Nausea, vomiting, resolved. CONDITION AT TIME OF DISCHARGE: Stable. PROGNOSIS: Fair. DISCHARGE MEDICATIONS: Tamiflu 75 b.i.d., Cipro 500 mg 2 times a day 1 week. HOSPITAL COURSE: The patient is hospitalized for flu B positive, fever, nausea, vomiting, abdominal pain, negative for gallstones, urinary tract infection. Final culture pending. The patient was given Rocephin during the hospitalization. The patient is going to get outpatient. Condition discussed. Questions answered. TID: [id number] RECEIPT: [id number] cc:
--- NOTE | 2024-07-30 19:03 | NUR ---
DCP -- Home Attempted to interview and perform initial assessment; patient was discharged. Addendum: 07/30/24 at 1905 by DAISHA TSAI RN CM Amended: Links added.
--- NOTE | 2024-07-30 23:13 | HP ---
ADMITTING HISTORY AND PHYSICAL CHIEF COMPLAINT: Fever, chills, abdominal pain, nausea, vomiting and flu B positive. HISTORY OF PRESENT ILLNESS: A 73-year-old female history of hypertension, lumbar pain, came to the Emergency Room with abdominal pain, nausea, vomiting, fever, chills, frequency of urination. The patient found to have flu B positive, negative for gallstones and urinary tract infection. The patient is hospitalized for dehydration and Tamiflu and antibiotics. The patient denies any chest pain, shortness of breath. PAST MEDICAL HISTORY: Significant for hypertension, ALLERGIES, hyperlipidemia, chronic low back pain. PAST SURGICAL HISTORY: Hysterectomy, tonsillectomy, lumbar surgery. MEDICATIONS: The patient takes amlodipine, rosuvastatin, folic acid. ALLERGIES: TO PENICILLIN, SULFA. SOCIAL HISTORY: Denies history of smoking, alcohol or substance use. FAMILY HISTORY: Noncontributory. REVIEW OF SYSTEMS: HEENT: Has nasal congestion and headaches. CARDIOVASCULAR: Denies chest pain. RESPIRATORY: Denies shortness of breath. GASTROINTESTINAL: Abdominal pain, nausea, vomiting. GENITOURINARY: No frequency of urination. PHYSICAL EXAMINATION: GENERAL: The patient is awake, alert, oriented to person, place and time. HEENT: Pupils equal. Mucous membranes appear to be dry. NECK: Supple. LUNGS: Mostly decreased breath sounds, no wheezing, no rhonchi. VITAL SIGNS: Significant temperature 100.2, pulse is 120, respirations are 18, blood pressure 126/94, pulse ox is 98%. HEENT: Pupils equal. Mucous membranes appear to be dry. NECK: Supple. LUNGS: Mostly decreased breath sounds. No wheezing, no rhonchi. HEART: Regular rate and rhythm. Tachycardia noted. ABDOMEN: Soft, nontender, nonspecific tenderness, but no localized tenderness, no guarding, no rebound. Bowel sounds present. EXTREMITIES: Noted. LABORATORY DATA: Significant for WBC is 5.8, hemoglobin 13.9, platelet count is 219, potassium is 2.9, BUN is 13, creatinine 0.8, calcium 9.2. Lipase is 15. COVID negative, flu B positive. Urinalysis shows a 26-50 WBC, nitrates negative. Ultrasound shows a fatty liver. No gallstones. ASSESSMENT AND PLAN: * Flu B positive abdominal pain with negative gallstones, urinary tract infection. Cultures pending. The patient is started on Rocephin. The patient was given Tamiflu. The patient is given 3 liters of fluid bolus total. The patient is going to get normal saline 100 mL per hour. * Hypokalemia, potassium 2.9. The patient is going to get potassium supplementation. Condition discussed. Questions answered. TID: [id number] RECEIPT: [id number] cc: SANJUANITA MEYER MD(User)
== END 2024-07-30 11:55 | disposition home or self-care (01) ==
LOC: EDH 20:20 → UNDOADMOB 20:21 → EDHIP 20:21 → 4CH 07-30 00:20 → EDHIP 07-30 00:20 → UNDODISOB 07-30 11:55
PROVIDERS: ADMIT Family Medicine; ATTEND Family Medicine
DX: J10.1 Influenza due to other identified influenza virus with other respiratory manifestations (principal); N39.0 Urinary tract infection, site not specified; G89.29 Other chronic pain; M54.50 Low back pain, unspecified; R11.2 Nausea with vomiting, unspecified; J45.909 Unspecified asthma, uncomplicated; I10 Essential (primary) hypertension; E87.6 Hypokalemia; E78.5 Hyperlipidemia, unspecified; E86.0 Dehydration; Z90.710 Acquired absence of both cervix and uterus; Z79.899 Other long term (current) drug therapy; Z98.890 Other specified postprocedural states; Z20.822 Contact with and (suspected) exposure to COVID-19
CPT/HCPCS: 96374; 96361 ×2; 96375; 99285; 80076; 83735 ×2; 84484; 80048; 83690; 85025 ×2; 87086; 87880; 87804 ×2; 81001; 36415 ×2; 87635; 71045; 76705; 93005; 80053; G0378 ×13; J7030; J0696; J2405; J2270; J2470; J3480